=== PATIENT | female | born 1985 | race American Indian/Alaskan Native ===

== ENCOUNTER 2020-01-21 12:45 | Outpatient (CLI) | payer OTHER ==
[~2020-01-21 12:45] MED LIST: PRENATAL TABLE1 EAC3 PO
== END 2020-01-21 12:56 | disposition home or self-care (01) ==
LOC: SONOGRAMA 12:45
PROVIDERS: ATTEND Specialist
DX: N84.0 Polyp of corpus uteri (principal); N93.0 Postcoital and contact bleeding; N92.0 Excessive and frequent menstruation with regular cycle

== ENCOUNTER → 2020-02-09 | Outpatient (CLI) | payer OTHER | END | disposition home or self-care (01) | LOC: LAB 11:32 | PROVIDERS: ATTEND Specialist | DX: D50.8 Other iron deficiency anemias (principal); E03.8 Other specified hypothyroidism; E78.3 Hyperchylomicronemia ==

== ENCOUNTER 2020-03-31 13:32 | Outpatient (CLI) | payer OTHER | END 2020-03-31 13:51 | disposition home or self-care (01) | LOC: SONOGRAMA 13:32 | PROVIDERS: ATTEND Specialist | DX: N93.8 Other specified abnormal uterine and vaginal bleeding (principal) ==